=== PATIENT | male | born 1980 | race Caucasian/White ===

== ENCOUNTER 2018-02-19 17:07 | Emergency (ER) | payer MEDICAID ==
[2018-02-19] MEDS: IBUPROFEN 800 MG TAB PO (19:51)
[2018-02-19] MEDS: LIDOCAINE 2% (MDV) 20 ML INJ INJ (19:52)
== END 2018-02-19 20:51 | disposition home or self-care (01) ==
LOC: FTE 17:07
DX: S51.011A Laceration without foreign body of right elbow, initial encounter (principal); W26.8XXA Contact with other sharp object(s), not elsewhere classified, initial encounter; Y92.9 Unspecified place or not applicable
CPT/HCPCS: 12002; 99283-25

== ENCOUNTER 2018-02-26 14:41 | Emergency (ER) | payer MEDICAID | END 2018-02-26 15:36 | disposition home or self-care (01) | LOC: E/R 14:41 | DX: Z48.02 Encounter for removal of sutures (principal); Z87.891 Personal history of nicotine dependence | CPT/HCPCS: 99281 ==